=== PATIENT | female | born 1980 | race Caucasian/White ===

== ENCOUNTER 2018-04-08 18:27 | Emergency (ER) | payer OTHER ==
--- NOTE | 2018-04-08 19:24 | EDM.PDOC ---
ED HPI GENERAL MEDICAL PROBLEM - General Chief Complaint: Skin Complaint Stated Complaint: BIOPSY ON BREAST WILL NOT QUIT BLEEDING Time Seen by Provider: 04/08/18 18:49 Source of Information: Reports: Patient, Family History Limitations: Reports: No Limitations - History of Present Illness INITIAL COMMENTS - FREE TEXT/NARRATIVE: The patient presents with left breast biopsy bleeding. The patient had a biopsy by Dr Hernandez today for a lump in her left breast. She had a mammogram after that. The biopsy area keeps bleeding. She has no trouble with clotting in the past. She has no history of thrombocytopenia. Her gums do not bleed and she does not bruise easily. Onset: Gradual Duration: Hour(s): Severity: Mild Improves with: Reports: None Worsens with: Reports: None Associated Symptoms: Reports: No Other Symptoms - Related Data Allergies Allergy/AdvReac Type Severity Reaction Status Date / Time soap Allergy Rash Verified 04/08/18 18:36 Home Meds: Home Meds Control. 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 Social & Family History - Tobacco Use Smoking Status *Q: Current Every Day Smoker Years of Tobacco use: 20 Packs/Tins Daily: 0.5 - Caffeine Use Caffeine Use: Reports: None - Recreational Drug Use Recreational Drug Use: No ED ROS GENERAL - Review of Systems Review Of Systems: See Below Constitutional: Reports: No Symptoms HEENT: Reports: No Symptoms Respiratory: Reports: No Symptoms Cardiovascular: Reports: No Symptoms Endocrine: Reports: No Symptoms GI/Abdominal: Reports: No Symptoms : Reports: No Symptoms Musculoskeletal: Reports: No Symptoms Skin: Reports: Other (Left breast biopsy bleeding) ED EXAM, SKIN/RASH Exam: See Below Exam Limited By: No Limitations General Appearance: Alert, No Apparent Distress Ears: Normal External Exam Nose: Normal Inspection Head: Atraumatic, Normocephalic Neck: Normal Inspection Respiratory/Chest: No Respiratory Distress, Lungs Clear, Normal Breath Sounds Cardiovascular: Regular Rate, Rhythm, No Edema, No Murmur GI/Abdominal: Soft, Non-Tender, No Organomegaly, No Mass Extremities: Normal Inspection Skin: Other (left breast biopsy site has some dried blood around it and the steristrips are saturated. No active bleeding at this time.) Course - Vital Signs Last Recorded V/S: Last Vital Signs Temp 98.1 F 04/08/18 18:34 Pulse 98 04/08/18 18:34 Resp 16 04/08/18 18:34 BP 150/94 H 04/08/18 18:34 Pulse Ox 98 04/08/18 18:34 - Re-Assessments/Exams Free Text/Narrative Re-Assessment/Exam: 04/08/18 19:23 I cleaned the area with saline and there was no active bleeding. My nurse then dressed the area with a quickclot 2 X 2 and dressings. I feel she will do well with this. Departure - Departure Time of Disposition: 19:25 Disposition: Home, Self-Care 01 Condition: Good Clinical Impression: S/P breast biopsy, left, Bleeding - Discharge Information *PRESCRIPTION DRUG MONITORING PROGRAM REVIEWED*: No *COPY OF PRESCRIPTION DRUG MONITORING REPORT IN PATIENT WANDA: No Referrals: Carmelina Arias MD [Primary Care Provider] - 1 Week Additional Instructions: The 2 X 2 sponge may saturate with blood tonight. That is okay as long as it does not go outside the dressing. Apply more pressure on the wound if needed. Please return if you are worse.
== END 2018-04-08 19:33 | disposition home or self-care (01) ==
LOC: JD.ED 18:27
DX: L76.21 Postprocedural hemorrhage of skin and subcutaneous tissue following a dermatologic procedure (principal); F17.210 Nicotine dependence, cigarettes, uncomplicated; Z91.09 Other allergy status, other than to drugs and biological substances; Z79.899 Other long term (current) drug therapy
CPT/HCPCS: 99283

== ENCOUNTER 2020-10-30 08:25 | Emergency (ER) | payer BC ==
--- NOTE | 2020-10-30 10:14 | EDM.PDOC ---
ED HPI GENERAL MEDICAL PROBLEM - General Chief Complaint: Chest Pain Stated Complaint: CHEST PAIN/HIGH BP Time Seen by Provider: 10/30/20 08:37 Source of Information: Reports: Patient, RN Notes Reviewed - History of Present Illness INITIAL COMMENTS - FREE TEXT/NARRATIVE: 40 yr old female has been having some L sided chest pain over the past several wks. Pain has been more bothersome the last 2 to 3 days. No known personal hx of heart problems. No recent illness. Left Chest Pain Score (Numeric/FACES): 4 - Related Data Allergies Allergy/AdvReac Type Severity Reaction Status Date / Time soap Allergy Rash Verified 10/30/20 08:36 Home Meds: Home Meds Control. 1 tab PO DAILY 04/08/18 [History] LORazepam [Ativan] 0.5 mg PO DAILY PRN 01/25/20 [History] Metoprolol Tartrate 25 mg PO BID 10/30/20 [History] Omeprazole 40 mg PO DAILY #30 capsule. 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 Denies: Shortness of Breath, Pleuritic Chest Pain Cardiovascular: Reports: Chest Pain GI/Abdominal: Denies: Abdominal Pain, Nausea, Vomiting Musculoskeletal: Denies: Shoulder Pain, Arm Pain Skin: Reports: No Symptoms Neurological: Denies: Numbness, Tingling, Weakness ED EXAM, GENERAL - Physical Exam Exam: See Below General Appearance: Alert, No Apparent Distress Head: Atraumatic Neck: Supple Respiratory/Chest: No Respiratory Distress, Lungs Clear, Normal Breath Sounds Cardiovascular: Regular Rate, Rhythm, Other (tender L ant. chest) GI/Abdominal: Soft, Non-Tender Back Exam: No: CVA Tenderness (L), CVA Tenderness (R) Extremities: Normal Inspection. No: Leg Pain, Increased Warmth, Redness Neurological: Alert, Oriented, No Motor/Sensory Deficits Skin Exam: Warm, Dry, Normal Color #1 Interpretation EKG Date: 10/30/20 Rhythm: NSR [place]: Normal P-Wave: Present QRS: Normal ST-T: Normal QT: Normal Course - Vital Signs Last Recorded V/S: Last Vital Signs Temp 96.9 F 10/30/20 08:50 Pulse 79 10/30/20 08:50 Resp 20 10/30/20 08:50 BP 142/87 H 10/30/20 08:50 Pulse Ox 97 10/30/20 08:50 - Orders/Labs/Meds Labs: Laboratory Tests 10/30/20 10/30/20 10/30/20 Range/Units 08:45 08:45 08:45 WBC 10.01 (3.98-10.04) K/mm3 RBC 4.60 (3.98-5.22) M/mm3 Hgb 13.7 (11.2-15.7) gm/dl Hct 41.4 (34.1-44.9) % MCV 90.0 (79.4-94.8) fl MCH 29.8 (25.6-32.2) pg MCHC 33.1 (32.2-35.5) g/dl RDW Std Deviation 42.6 (36.4-46.3) fL Plt Count 391 H (182-369) K/mm3 MPV 10.1 (9.4-12.3) fl Neut % (Auto) 64.1 (34.0-71.1) % Lymph % (Auto) 23.3 (19.3-51.7) % [place] % (Auto) 10.5 (4.7-12.5) % Eos % (Auto) 1.7 (0.7-5.8) Baso % (Auto) 0.2 (0.1-1.2) % Neut # (Auto) 6.42 H (1.56-6.13) K/mm3 Lymph # (Auto) 2.33 (1.18-3.74) K/mm3 [place] # (Auto) 1.05 H (0.24-0.36) K/mm3 Eos # (Auto) 0.17 (0.04-0.36) K/mm3 Baso # (Auto) 0.02 (0.01-0.08) K/mm3 Manual Slide Review Normal smear D-Dimer, Quantitative 0.20 (0.19-0.50) mg/L Sodium 141 (136-145) mEq/L Potassium 3.8 (3.5-5.1) mEq/L Chloride 107 (98-107) mEq/L Carbon Dioxide 27 (21-32) mEq/L Anion Gap 10.8 (5-15) BUN 12 (7-18) mg/dL Creatinine 1.0 (0.55-1.02) mg/dL Est Cr Clr Drug Dosing 74.68 mL/min Estimated GFR (MDRD) > 60 (>60) mL/min BUN/Creatinine Ratio 12.0 L (14-18) Glucose 104 H (70-99) mg/dL Calcium 8.3 L D (8.5-10.1) mg/dL Total Bilirubin 0.2 (0.2-1.0) mg/dL AST 12 L (15-37) U/L ALT 21 (14-59) U/L Alkaline Phosphatase 71 (46-116) U/L Troponin I < 0.017 (0.00-0.056) ng/mL Total Protein 7.3 (6.4-8.2) g/dl Albumin 3.3 L (3.4-5.0) g/dl Globulin 4.0 gm/dL Albumin/Globulin Ratio 0.8 L (1-2) - Re-Assessments/Exams Free Text/Narrative Re-Assessment/Exam: 10/30/20 12:58 CBC, D Dimer, trop, CXR all normal Departure - Departure Time of Disposition: 10:20 Disposition: Home, Self-Care 01 Condition: Fair Clinical Impression: Atypical chest pain, GERD (gastroesophageal reflux disease) Prescriptions: Omeprazole 40 mg PO DAILY #30 capsule.dr Instructions: Nonspecific Chest Pain, Adult, Gastroesophageal Reflux Disease, Adult Referrals: Shelley Hanna TRAUMA COUNSELLOR [Primary Care Provider] - Forms: ED Department Discharge Additional Instructions: Continue with careful diet, omeprazole 40 mg daily, prescription has been sent to [facility]. Continue with tums as needed. Follow up with your medical provider in about 2 weeks, return to ED as needed if symptoms worsening in any way. Sepsis Event Note (ED) - Evaluation Sepsis Screening Result: No Definite Risk - Focused Exam Vital Signs: Vital Signs Temp Pulse Resp BP Pulse Ox 10/30/20 08:50 96.9 F 79 20 142/87 H 97 10/30/20 08:34 96.9 F 81 16 148/89 H 98
== END 2020-10-30 10:37 | disposition home or self-care (01) ==
LOC: JD.ED 08:25
DX: K21.9 Gastro-esophageal reflux disease without esophagitis (principal); Z72.0 Tobacco use; Z91.048 Other nonmedicinal substance allergy status
CPT/HCPCS: 36415; 80053; 84484; 85025; 85379; 93005; 93010; 99283; 99285-25

== ENCOUNTER 2021-10-22 08:09 | Day surgery (SDC) | payer BC ==
[~2021-10-22 08:09] MED LIST: Lactated Ringers 1,000 ML IV SCH; Lidocaine 1%/Sod Bicarbonate in NS 8.4% 1 ML Syringe IDERM ONE; Lidocaine 1%/Sod Bicarbonate in NS 8.4% 1 ML Syringe IDERM PRN; Sodium Chloride 0.9% 10 ML Syringe FLUSH PRN; Sodium Chloride 0.9% 10 ML Syringe FLUSH SCH
[2021-10-22] MEDS ORDERED: Rocuronium 50 MG/5 ML Vial ONE (08:59)
[2021-10-22] MEDS ORDERED: ceFAZolin 2 GM Vial ONE (08:59)
[2021-10-22] MEDS ORDERED: fentaNYL 250 MCG/5 ML SDV ONE (09:00)
[2021-10-22] MEDS ORDERED: Midazolam 1 MG/ML 2 ML SDV ONE (09:00)
[2021-10-22] MEDS ORDERED: Propofol 200 MG/20 ML SDV ONE (09:00)
[2021-10-22] MEDS ORDERED: Ondansetron 4 MG/2 ML SDV ONE (09:01)
[2021-10-22] MEDS ORDERED: Dexamethasone 4 MG/ML 5 ML MDV ONE (09:01)
[2021-10-22] MEDS ORDERED: Lidocaine 1% 4 ML ONE (09:01)
[2021-10-22] MEDS ORDERED: Lactated Ringers 1,000 ML ONE (09:19)
[2021-10-22] MEDS ORDERED: Scopolamine 1.5 MG Transdermal Patch TOP ONE (10:00)
[2021-10-22] MEDS ORDERED: Lidocaine 1% with EPINEPHrine 1:100,000 20 ML MDV ONE (10:10)
[2021-10-22] MEDS ORDERED: Sodium Chloride 0.9% 50 ML SDV ONE (10:11)
[2021-10-22] MEDS ORDERED: Ketorolac 30 MG/ML SDV ONE (10:16)
[2021-10-22] MEDS ORDERED: Ondansetron 4 MG/2 ML SDV IVPUSH PRN ×2 (10:26→10:47)
[2021-10-22] MEDS ORDERED: fentaNYL 100 MCG/2 ML SDV IVPUSH PRN (10:26)
[2021-10-22] MEDS ORDERED: HYDROmorphone 0.5 MG/0.5 ML Syringe IVPUSH PRN (10:26)
[2021-10-22] MEDS ORDERED: Neostigmine Methylsulfate 10 MG/10 ML MDV ONE (10:39)
[2021-10-22] MEDS ORDERED: Acetaminophen/oxyCODONE 325-5 MG Tab PO PRN (10:47)
[2021-10-22] MEDS ORDERED: Ketorolac 30 MG/ML SDV IVPUSH ONE (17:00)
[2021-10-22] MEDS ORDERED: Ibuprofen 600 MG Tab PO PRN (23:00)
== END 2021-10-22 14:30 | disposition home or self-care (01) ==
LOC: JD.SDS 08:09
PROVIDERS: ATTEND Obstetrics & Gynecology
DX: N72 Inflammatory disease of cervix uteri (principal); N60.19 Diffuse cystic mastopathy of unspecified breast; I10 Essential (primary) hypertension; F41.9 Anxiety disorder, unspecified; F32.A Depression, unspecified; H81.10 Benign paroxysmal vertigo, unspecified ear; G47.00 Insomnia, unspecified; K21.9 Gastro-esophageal reflux disease without esophagitis; F17.200 Nicotine dependence, unspecified, uncomplicated; Z79.899 Other long term (current) drug therapy; Z98.890 Other specified postprocedural states
CPT/HCPCS: 58262; A9270; J0690; J1100; J1170; J1885; J2250; J2405; J2704; J2710; J3010; J7120; 00944